=== PATIENT | female | born 1955 | race Two or more races ===

== ENCOUNTER 2019-07-30 12:43 | Emergency (ER) | payer MEDICARE ==
[~2019-07-30] VITALS: Ht 170.2 cm; Wt 111.1 kg
[2019-07-30 12:48] VITALS: BP 194/100
== END 2019-07-30 13:40 | disposition home or self-care (01) ==
LOC: ER 12:46
DX: M06.832 Other specified rheumatoid arthritis, left wrist (principal); M06.831 Other specified rheumatoid arthritis, right wrist; M25.532 Pain in left wrist; M25.531 Pain in right wrist; E11.9 Type 2 diabetes mellitus without complications